=== PATIENT | female | born 1980 | race Caucasian/White ===

== ENCOUNTER 2016-11-26 11:08 | Inpatient (IN) | payer MEDICAID, OTHER ==
[2016-11-26] MEDS ORDERED: ONDANSETRON 4 MG/2 ML VIAL ONE ×3 (11:11→19:04)
--- NOTE | 2016-11-26 11:20 | EDPHY ---
H & P Source: Patient, Family, EMS Exam Limitations: No limitations - Medical/Surgical History Hx Asthma: Yes Hx Chronic Respiratory Disease: Yes Hx Diabetes: No Hx Cardiac Disease: No Hx Renal Disease: No Hx Cirrhosis: No Hx Alcoholism: No Hx HIV/AIDS: No Hx Splenectomy or Spleen Trauma: No Other PMH: Stent for kidney stones. Colecystectomy. 2x c-sections - Social History Smoking Status: Former smoker HPI/ROS: CHIEF COMPLAINT: Fall, ankle injury HISTORY OF PRESENT ILLNESS: Patient was exiting her shower when she slipped and fell injuring her right ankle. This happened within the past hour. She noted a severe onset of pain in the ankle. She noted a deformity. She was able to "put the bones back." EMS was activated. They placed the same splint she is transported here and administered fentanyl. Her pain was 10/10 prior to this. It is still moderate to severe at this time. She has no numbness or tingling of the foot. She has no pain in the ipsilateral proximal fibula. No head or neck injury. No injury elsewhere. No other associated complaints or modifying factors. REVIEW OF SYSTEMS: Ten systems reviewed and are negative unless otherwise noted in the HPI EXAMINATION General Appearance: Alert, no distress Cardiovascular: Pulses normal throughout. Symmetric DP pulses at 2+. Brisk cap refill Neurological: A&O, sensory symmetric, strength is 5/5 on the left. Strength is not tested on the right due to deformity. Skin: Warm and dry, no rash. Small puncture versus laceration of the medial aspect of the right ankle. No ecchymosis. Extremities: Moderate tenderness to the right ankle bimalleolar. There is deformity on the medial aspect of the ankle. No tenderness of the right midfoot. No tenderness of the right heel or proximal fibula. Range of motion not tested secondary to deformity and splint. Brisk cap refill in all toes. Psychiatric: Mood and affect normal DIFFERENTIAL DIAGNOSES: Including but not limited to fracture, fracture dislocation, sprain, strain MDM: 11:20 a.m. Mechanical fall exiting the shower. There is deformity of the ankle. She is neurovascular intact with good sensory and 2+ DP on the right foot. X-ray has been ordered. She still in a same splint. She was seen at time of arrival. 11:45 a.m. X-rays interpreted by me reveals bimalleolar possibly trimalleolar fracture. There is decent anatomic alignment. Will consult Orthopedics to discuss. Patient does not have an established orthopedist. 12:00 p.m. Case was discussed with orthopedist Dr. Browne. He will take the patient to the operating room today. Patient ate breakfast thus the surgery will be later this afternoon. Patient is comfortable and preferable this plan. 12:10 p.m. Re-evaluated the patient. At further examine, there is a small puncture over the medial aspect of the right ankle that may suggest compound/open fracture. due to this we will place her on antibiotics. She will also be placed in a posterior splint with stirrup as her surgery will not occur until 4:00 p.m.. She remains hemodynamically stable in no acute distress. Preoperative labs have been ordered. She remains NPO with IV fluid hand and self administration. ED Precautions: Worsening pain. Erythema, edema, cyanosis, pallor, paresthesia or anesthesia. SUPERVISION: This patient was independently evaluated without direct examination by the attending physician. Case was discussed with attending physician. Orthopedic admission (Adrian Morales) Constitutional: Initial Vital Signs Temperature (C) 98.2 F 11/26/16 11:08 Heart Rate 82 11/26/16 11:08 Respiratory Rate 16 11/26/16 11:08 Blood Pressure 133/80 H 11/26/16 11:08 O2 Sat (%) 96 11/26/16 11:08 O2 Delivery Mode Room Air Allergies/Adverse Reactions: No Known Allergies Allergy (Unverified 04/26/14 14:33) Home Medications: Medication Instructions Recorded LEVETIRACETAM [Keppra 1000 mg] 1,500 mg PO BID 11/26/16 Sertraline HCl [Zoloft 50mg (*)] 75 mg PO DAILY 11/26/16 acetaZOLAMIDE [Diamox] 250 mg PO DAILY 11/26/16 Medical Decision Making - Diagnostics Imaging: Imaging Impressions Ankle X-Ray 11/26/16 11:18 Impression: Bimalleolar right ankle fracture with lateral subluxation of the talus. Care Turn Over: The patient was evaluated and managed by the physician enrichment assistant. I have reviewed this chart and I agree with the findings and plan of care as documented , as indicated by my signature. I am the secondary supervising physician. I reviewed the patient's x-rays. (Corrine Davidson) - Data Points Medications Given: Discontinued Medications Sodium Chloride (Ns) 1,000 mls @ 0 mls/hr IV ONCE ONE PRN Reason: Wide Open Stop: 11/26/16 12:02 Last Admin: 11/26/16 12:08 Dose: 1,000 mls Cefazolin Sodium 2 gm/ Sodium (Chloride) 100 mls @ 200 mls/hr IV EDNOW ONE PRN Reason: Protocol Stop: 11/26/16 12:45 Last Admin: 11/26/16 13:09 Dose: 100 mls Cefazolin Sodium/Dextrose (Ancef 2 Gm (Premix)) 100 mls @ 200 mls/hr IV ONCE ONE Stop: 11/26/16 13:29 Last Admin: 11/26/16 13:06 Dose: Not Given Morphine Sulfate (Morphine) 6 mg IVP EDNOW ONE Stop: 11/26/16 12:20 Last Admin: 11/26/16 12:34 Dose: 6 mg Ondansetron HCl (Zofran) 4 mg IVP EDNOW ONE Stop: 11/26/16 11:23 Last Admin: 11/26/16 11:23 Dose: 4 mg Ondansetron HCl (Zofran) 4 mg IVP EDNOW ONE Stop: 11/26/16 12:20 Last Admin: 11/26/16 12:34 Dose: 4 mg Departure - Departure Disposition: [facility] Inpatient Acute Condition: Good
[2016-11-26] MEDS ORDERED: ONDANSETRON 4 MG/2 ML VIAL IVP ONE ×2 (11:22→12:19)
[2016-11-26] MEDS ORDERED: NS 1,000 ML IV ONE (12:01)
[2016-11-26] MEDS ORDERED: ceFAZolin 2 GM in NS 100 ML IV ONE (12:16)
[2016-11-26 12:34] LABS: HEMATOCRIT 43.6 % (38.0-47.0); HEMOGLOBIN 15.1 g/dL (12.6-16.3); MEAN CELL HEMOGLOBIN 32.6 pg (27.9-34.1); MEAN CELL HEMOGLOBIN CONCENTR. 34.6 g/dL (32.4-36.7); MEAN CELL VOLUME 94.2 fL (81.5-99.8); RED BLOOD CELL COUNT 4.63 10^6/uL (4.18-5.33); RED CELL DISTRIBUTION WIDTH 11.9 % (11.5-15.2)
[2016-11-26 12:44] LABS: ANION GAP 10 mEq/L (8-16); CALCIUM 8.5 mg/dL (8.5-10.4); CARBON DIOXIDE 23 mEq/l (22-31); CHLORIDE 109 mEq/L (97-110); CREATININE 0.7 mg/dL (0.6-1.0); GLOMERULAR FILTRATION RATE > 60; GLUCOSE 106 mg/dL (70-100); POTASSIUM 3.7 mEq/L (3.5-5.2); SODIUM 142 mEq/L (134-144)
[2016-11-26 12:59] LABS: APTT 21.5 SEC (23.0-38.0); INR 0.96 (0.83-1.16); PROTIME(PATIENT) 12.7 SEC (12.0-15.0)
[2016-11-26] MEDS ORDERED: ceFAZolin 2 GM/DEXTROSE 100 ML IV ONE (13:00)
[2016-11-26] MEDS ORDERED: BUPIVACAINE/EPI 0.25% 30 ML SDV ONE (13:54)
[2016-11-26] MEDS ORDERED: BACITRACIN 50,000 UNITS/10 ML SYR IRR ONE (13:55)
[2016-11-26] MEDS ORDERED: POLYMYXIN B SULFATE 500,000 UNIT/10 ML SYR IRR ONE (13:55)
[2016-11-26] MEDS ORDERED: ONDANSETRON DISINTEGRATING 4 MG TAB PO PRN (14:26)
[2016-11-26] MEDS ORDERED: ONDANSETRON 4 MG/2 ML VIAL IVP PRN (14:26)
[2016-11-26] MEDS ORDERED: MINERAL OIL 10 ML VIAL TP ONE (15:40)
[2016-11-26] MEDS ORDERED: MIDAZOLAM 2 MG/2 ML VIAL ONE (16:03)
[2016-11-26] MEDS ORDERED: CEFAZOLIN 1 GM/DEXTROSE/50 ML BAG IV ONE (16:03)
[2016-11-26] MEDS ORDERED: HYDROmorphONE/DILAUDID 2 MG/ML INJ ONE (16:18)
[2016-11-26] MEDS ORDERED: PROPOFOL 200 MG/20 ML VIAL ONE (16:18)
[2016-11-26] MEDS ORDERED: KETAMINE 100 MG/10 ML SYR IVP ONE (16:39)
[2016-11-26] MEDS ORDERED: SUCCINYLCHOLINE CHLORIDE*ANESTHESIA ONLY*200 MG/10 ML SYR IVP ONE (16:55)
[2016-11-26] MEDS ORDERED: DEXAMETHASONE 4 MG/ML VIAL ONE ×2 (16:55)
[2016-11-26] MEDS ORDERED: LIDOCAINE 2% 5 ML SDV ONE (16:55)
[2016-11-26] MEDS ORDERED: GLYCOPYRROLATE 0.2 MG/1 ML VIAL ONE (16:55)
[2016-11-26] MEDS ORDERED: MAGNESIUM HYDROXIDE 30 ML UDCUP PO PRN (18:36)
[2016-11-26] MEDS ORDERED: ACETAMINOPHEN 325 MG TAB PO PRN (18:36)
[2016-11-26] MEDS ORDERED: POLYETHYLENE GLYCOL 3350 17 GM PKT PO PRN (18:36)
[2016-11-26] MEDS ORDERED: LACTULOSE 20 GM/30 ML UDCUP PO PRN (18:36)
[2016-11-26] MEDS ORDERED: TEMAZEPAM 15 MG CAP PO PRN (18:36)
[2016-11-26] MEDS ORDERED: BISACODYL 10 MG SUPP PR PRN (18:36)
--- NOTE | 2016-11-26 18:36 | POSTOPPROG ---
Post Op Note Date of Operation: 11/26/16 Surgeon: Dolly Browne Anesthesiologist: pro Anesthesia: GET(General Endotracheal) Pre-op Diagnosis: r ankle fx Procedure: orif r ankle with fluoro Inf/Abcess present in the surg proc area at time of surgery?: No Depth: Deep Incisional (Fascial) EBL: 100-500
[2016-11-26] MEDS ORDERED: TAPENTADOL HCL 50 MG TAB PO PRN (18:40)
[2016-11-26] MEDS ORDERED: D5W 1/2 NS W/ 20 KCl/L 1,000 ML IV SCH (18:45)
--- NOTE | 2016-11-26 19:27 | GOP ---
[f rep st] OPERATIVE REPORT DATE OF OPERATION: 11/26/2016 SURGEON: Dolly Browne MD ANESTHESIA: Endotracheal intubation. PREOPERATIVE DIAGNOSIS: Right ankle fracture with comminution and ligamentous instability. POSTOPERATIVE DIAGNOSIS: Right ankle fracture with comminution and ligamentous instability. PROCEDURE PERFORMED: Open reduction/internal fixation of right ankle with fluoroscopy with syndesmo tic screw. FINDINGS: INDICATIONS: This is a 36-year-old female who slipped today after getting out of the shower. Had p ain and deformity in the ankle, which she reduced on her own apparently. Brought to the emergency r oom. She was diagnosed with a comminuted ankle fracture. As soon as she was cleared by Anesthesia, she was brought to the operating room. DESCRIPTION OF PROCEDURE: Patient brought to the operating room after the right side had been ident ified as correct side by the patient, nurse, and physician. Once in the operating room, she was octavia jerrica under general anesthesia using endotracheal intubation. Once asleep, tourniquet was placed arou nd the upper portion of the right calf. The right lower extremity was sterilely prepped and draped in the usual fashion using solution. Once prepped and draped, limb was exsanguinated and tourniquet inflated to 250 mmHg. A linear incision was made along the course of the distal fibula, approximately 20 cm long, with sharp dissection carried down through skin and subcutaneous layers, identifying the fibula below. Much of the dissection around the periosteum and been done by the fra cture itself. There was comminution with a large butterfly fragment noted posteriorly. The butterf ly fragment was reduced to the 2 larger fragments and held in place with bone reduction forceps. Tw o lag screws were then placed through the distal fragment into the butterfly, and the proximal fragm ent into the butterfly fragment, holding it in place, at which point, an 8-hole 1/3 tubular plate wa s placed against the side of the fibula. Two cortical screws were placed in order to secure the octavia te into place and bending it and molding it to the bone. Once in place, 2 proximal locking screws w ere put into place. A distal locking screw was put in place and then a cortical screw was placed in the distal portion of the plate in order to bend the plate to the cortex. Attention was then turne d medially. A linear incision was made, starting from the tip of the medial malleolus, extending ap proximately 7 cm proximally, in order to gain access to the medial malleolar site. There was abunda nt amount of periosteum stuck between the fracture fragments. Therefore, it was removed from the fr acture fragments and thoroughly irrigated to remove any hematoma and small bony bits within the frac ture site. Once completed, the fracture was able to be reduced and held in place with a K-wire, at which two 40 mm partially threaded cancellous screws were placed through the medial malleolus after appropriate drill holes had been made. Once in place, x-rays were taken and noted to still have poli e instability creating a gapping at the medial gutter with easy reducibility. Therefore, 1 of the c ortical screws associated with the 1/3 tubular plate was removed with the screw hole then filled wit h a fully threaded 3.5 mm cortical screw while the ankle was being held in a reduced position. Once completed, fluoroscopy was used to ensure proper positioning of all the screws, and there was no in stability noted across the ankle. Once completed, both wounds were thoroughly irrigated with antibi otic solution and closed in layers, to include 0 Vicryl suture for the fascial layers, 2-0 Vicryl rae ture for subcutaneous layers, and a 3-0 Prolene suture in a running subcuticular stitch for the skin . Tourniquet was deflated at 67 minutes. 10 cc of Marcaine was infused to the fibular site and 5 c c of Marcaine to the medial malleolar site. Wounds were then dressed with Steri-Strips, Xeroform, 4 x 4, and Webril. The leg was completely undraped in the operating room and tourniquet removed from the calf. An Mitul wrap was placed around the foot and ankle. She was then placed in a walker boot. She was awakened, extubated, transferred onto a stretcher, and sent to the recovery room in good c ondition. TOURNIQUET TIME: 67 minutes. /[id number]/MODL
--- NOTE | 2016-11-26 19:32 | GDS ---
[f rep st] DISCHARGE SUMMARY CURRENT COMPLAINT: Right ankle pain. HISTORY OF PRESENT ILLNESS: This is a 36-year-old female who slipped after getting out of the showe r, had pain and deformity in her ankle. Apparently was able to get the ankle into a more neutral po sition, brought to the emergency room, diagnosed with a bimalleolar fracture. MEDICAL HISTORY: Asthma. PRIOR SURGERIES: Includes stent for kidney stones, cholecystectomy and x2. PHYSICAL EXAM: HEENT: Pupils equal, round, and reactive to light. CHEST: Clear to auscultation. HEART: Regular rate and rhythm. ABDOMEN: Soft and nontender. EXTREMITIES: Right ankle has good sensation to the dorsal, lateral and plantar portions of the foot with the EHL and FHL remaining in tact. Posterior tibialis and anterior tibialis were unable to be tested. IMAGING: X-ray exam reveals a comminuted fracture of the fibula with fracture of the medial malleol us and gapping noted to the medial gutter. ASSESSMENT/PLAN: Patient is status post right ankle bimalleolar fracture. Since she had something to eat this morning, we will wait an adequate amount of time per Anesthesia until she can go to the operating room, at which point, she will undergo an open reduction, internal fixation. /[id number]/MODL
[2016-11-26] MEDS: levETIRAcetam 500 MG TAB PO SCH (19:51)
[2016-11-26] MEDS: SENNOSIDES/DOCUSATE SODIUM TAB PO SCH (19:52)
[2016-11-26] MEDS ORDERED: LEVETIRACETAM 1500 MG PO SCH (21:00)
[2016-11-26] MEDS: traMADol 50 MG TAB PO SCH (22:15)
[2016-11-26] MEDS: HYDROCODONE/APAP 5/325 TAB PO PRN (22:22)
[2016-11-27] MEDS: HYDROCODONE/APAP 5/325 TAB PO PRN ×4 (03:36→20:31)
[2016-11-27] MEDS: traMADol 50 MG TAB PO SCH ×3 (06:46→17:46)
[2016-11-27] MEDS: levETIRAcetam 500 MG TAB PO SCH ×2 (06:47→20:32)
[2016-11-27] MEDS: SERTRALINE HCL 50 MG TAB PO SCH (09:13)
[2016-11-27] MEDS: SENNOSIDES/DOCUSATE SODIUM TAB PO SCH ×2 (09:14→20:32)
[2016-11-27] MEDS: acetaZOLAMIDE 250 MG TAB PO SCH (09:14)
[2016-11-27] MEDS: RIVAROXABAN 10 MG TAB PO SCH (09:14)
[2016-11-27] MEDS: oxyCODONE IR 5 MG TAB PO PRN ×2 (13:23→17:46)
--- NOTE | 2016-11-27 15:18 | SOAPPROG ---
JOSE ALEJANDRO Progress Note Assessment/Plan: Assessment: Plan: Subjective: states she has pain when foot is in dependent position dressing C&D foot NVI DC when cleared by PT ?tomorrow Objective: Vital Signs Temp Pulse Resp BP Pulse Ox 36.4 C 61 16 118/76 92 11/27/16 12:00 11/27/16 12:00 11/27/16 12:00 11/27/16 12:00 11/27/16 12:00 Laboratory Results 11/27/16 04:52 11/26/16 11/27/16 11/28/16 05:59 05:59 05:59 Intake Total 1250 200 Output Total 1830 Balance -580 200 PT 12.7 SEC (12.0-15.0) 11/26/16 12:20 INR 0.96 (0.83-1.16) 11/26/16 12:20 - Pending Discharge Pending Discharge Within 24 Hours: No ICD10 Worksheet Patient Problems: Problems Problem Status Onset Ankle fracture, bimalleolar, closed Acute - ICD10 Problem Qualifiers (1) Ankle fracture, bimalleolar, closed Qualifiers: Encounter type: E Laterality: L Fracture healing: F
[2016-11-28] MEDS: traMADol 50 MG TAB PO SCH ×3 (02:00→11:29)
[2016-11-28] MEDS: HYDROCODONE/APAP 5/325 TAB PO PRN (04:15)
[2016-11-28 04:25] VITALS: RESP 16
[2016-11-28] MEDS: SENNOSIDES/DOCUSATE SODIUM TAB PO SCH (08:17)
[2016-11-28] MEDS: RIVAROXABAN 10 MG TAB PO SCH (08:18)
[2016-11-28] MEDS: acetaZOLAMIDE 250 MG TAB PO SCH (08:18)
[2016-11-28] MEDS: levETIRAcetam 500 MG TAB PO SCH (08:18)
[2016-11-28] MEDS: SERTRALINE HCL 50 MG TAB PO SCH (08:18)
--- NOTE | 2016-11-28 11:03 | SOAPPROG ---
SOAP Progress Note Assessment/Plan: Assessment: POD #2 s/p R ankle ORIF Plan: - D/C home today 11/28/16 11:02 Subjective: Doing well, pain controlled with [place]. Ready to go home Objective: Vital Signs Temp Pulse Resp BP Pulse Ox 36.8 C 69 16 101/59 L 97 11/28/16 07:41 11/28/16 07:41 11/28/16 07:41 11/28/16 07:41 11/28/16 07:41 Laboratory Results 11/27/16 04:52 11/27/16 11/28/16 11/29/16 05:59 05:59 05:59 Intake Total 1250 550 Output Total 1830 700 Balance -580 -150 PT 12.7 SEC (12.0-15.0) 11/26/16 12:20 INR 0.96 (0.83-1.16) 11/26/16 12:20 Dressing, CDI, calf NT, NVI - Time Spent With Patient Time Spent With Patient: 15 - Pending Discharge Pending Discharge Within 24 Hours: Yes Pending Discharge Within 48 Hours: No Pending Discharge Date: 11/29/16 Pending Discharge Time: 11:00 ICD10 Worksheet Patient Problems: Problems Problem Status Onset Ankle fracture, bimalleolar, closed Acute
--- NOTE | 2016-11-28 11:06 | PDIAF ---
- Diagnosis Code Status: Full Code - Medication Management Discharge Medications: Medications to Continue on Transfer LEVETIRACETAM [Keppra 1000 mg] 1,500 mg PO BID 11/26/16 [Last Taken 11/26/16 FIRST DOSE] Sertraline HCl [Zoloft 50mg (*)] 75 mg PO DAILY 11/26/16 [Last Taken 11/26/16] acetaZOLAMIDE [Diamox] 250 mg PO DAILY 11/26/16 [Last Taken 11/26/16] Discharge Medications: Refer to the Discharge Home Medication list for PRN reason. PICC Care - Routine: N/A - Orders Diet Recommendation: no restrictions on diet Diet Texture: Regular Texture Diet Singh: Not applicable Sutures/Crosby Site: May shower, remove in office, follow up in 2 wks Activity/Weight Bearing Restrictions: NWB x 6 weeks - Follow Up Care Current Providers and Referrals: Patient,NotPresent [Unknown] - As per Instructions
[2016-11-28 12:04] VITALS: BP 115/79; PULSE 71; TEMP 97.5; O2SAT 94
== END 2016-11-28 12:53 | disposition home or self-care (01) | DRG 494 ==
LOC: EDUNIT# → F3N 13:24 → OBSVTOIN 18:36
PROVIDERS: ADMIT Orthopaedic Surgery; ATTEND Orthopaedic Surgery
PROC: 0QSJ04Z Reposition Right Fibula with Internal Fixation Device, Open Approach (ICD-10-PCS; principal; 2016-11-26 18:26)
DX: S82.841A Displaced bimalleolar fracture of right lower leg, initial encounter for closed fracture (principal); W01.0XXA Fall on same level from slipping, tripping and stumbling without subsequent striking against object, initial encounter; Y93.E1 Activity, personal bathing and showering; Y92.012 Bathroom of single-family (private) house as the place of occurrence of the external cause
CPT/HCPCS: 96365; 97161-GP; 97165-GO; 97535-GO; C1713; C1769; J0330; J0690; J1100; J1170; J2250; J2405; J2704

== ENCOUNTER → 2016-12-03 | Emergency (ER) | payer MEDICAID ==
[2016-12-03 15:08] VITALS: O2SAT 95
--- NOTE | 2016-12-03 16:08 | EDPHY ---
H & P Time Seen by Provider: 12/03/16 15:16 HPI/ROS: CHIEF COMPLAINT: dressing check HISTORY OF PRESENT ILLNESS: 36-year-old female presents emergency department requesting a new dressing to her right ankle. Patient had an ORIF of a trimalleolar fracture [address] Browne[address] She got the outside of her dressing wet accidentally yesterday in the shower. She removed the outer layers which were wet and now has pain with putting her walking boot on without that extra padding. Patient denies fevers or chills, reports no pain other than the boot rubbing. No numbness or tingling in her foot, no other complaints. Smoking Status: Former smoker Physical Exam: GEN: Awake, alert, oriented, no acute distress RESP: nl resp effort MSK: Ecchymosis to medial and lateral ankle, range of motion not tested, 2+ pedal pulses, sensation intact to light touch SKIN: Incisions with no erythema, sutures intact, Steri-Strips intact, no drainage Constitutional: Initial Vital Signs Temperature (C) 36.6 C 12/03/16 15:07 Heart Rate 85 12/03/16 15:07 Respiratory Rate 18 12/03/16 15:07 Blood Pressure 133/84 H 12/03/16 15:07 O2 Sat (%) 95 12/03/16 15:07 O2 Delivery Mode Room Air Allergies/Adverse Reactions: No Known Allergies Allergy (Verified 12/03/16 15:08) Home Medications: Medication Instructions Recorded LEVETIRACETAM [Keppra 1000 mg] 1,500 mg PO BID 11/26/16 Sertraline HCl [Zoloft 50mg (*)] 75 mg PO DAILY 11/26/16 acetaZOLAMIDE [Diamox] 250 mg PO DAILY 11/26/16 Hydrocodone/APAP 5/325 [[place] 1 - 2 tab PO Q3HRS PRN #0 tab 11/28/16 5/325 (*)] Rivaroxaban [Xarelto 10mg (*)] 10 mg PO DAILY #0 tab 11/28/16 MDM/Departure - MDM Procedures: Dressing removal and placement- Surgical dressing removed, new sterile dressing placed to right ankle. - Depart Disposition: Home, Routine, Self-Care Clinical Impression: Encounter for surgical wound dressing change Condition: Good Instructions: Ankle Fracture (ED) Additional Instructions: Keep your dressing clean and dry, follow up with Dr. Browne as scheduled. Return to the emergency department for any new symptoms or concerns. Referrals: Dolly Browne MD [Medical Doctor] - As per Instructions
[2016-12-03 16:23] VITALS: BP 153/91; PULSE 69; RESP 14; TEMP 98.1
== END | disposition home or self-care (01) ==
DX: Z48.01 Encounter for change or removal of surgical wound dressing (principal); Z87.891 Personal history of nicotine dependence

== ENCOUNTER 2017-01-13 12:09 | Day surgery (SDC) | payer MEDICAID ==
[2017-01-13] MEDS ORDERED: fentaNYL 100 MCG/2 ML INJ ONE ×3 (12:31→14:54)
[2017-01-13] MEDS ORDERED: PROPOFOL 200 MG/20 ML VIAL ONE ×2 (12:32→14:20)
[2017-01-13] MEDS ORDERED: LIDOCAINE 1% 2 ML INJ ONE (13:02)
[2017-01-13] MEDS ORDERED: BACITRACIN 50,000 UNITS/10 ML SYR IRR ONE (13:13)
[2017-01-13] MEDS ORDERED: BUPIVACAINE 0.5% 30 ML SDV ONE (13:13)
[2017-01-13] MEDS ORDERED: POLYMYXIN B SULFATE 500,000 UNIT/10 ML SYR IRR ONE (13:13)
[2017-01-13] MEDS ORDERED: LR 1,000 ML IV ONE (13:18)
[2017-01-13] MEDS ORDERED: LIDOCAINE 1% 5 ML SDV ID PRN (13:18)
[2017-01-13] MEDS ORDERED: MIDAZOLAM 2 MG/2 ML VIAL ONE (13:29)
[2017-01-13 13:36] LABS: ANION GAP 10 mEq/L (8-16); CALCIUM 9.3 mg/dL (8.5-10.4); CARBON DIOXIDE 23 mEq/l (22-31); CHLORIDE 109 mEq/L (97-110); CREATININE 0.7 mg/dL (0.6-1.0); GLOMERULAR FILTRATION RATE > 60; GLUCOSE 88 mg/dL (70-100); POTASSIUM 4.1 mEq/L (3.5-5.2); SODIUM 142 mEq/L (134-144)
[2017-01-13] MEDS ORDERED: ceFAZolin 3 GM in D5W 100 ML IV ONE (14:00)
[2017-01-13] MEDS ORDERED: ACETAMINOPHEN 500 MG TAB PO ONE (14:00)
[2017-01-13] MEDS ORDERED: KETOROLAC 30 MG/1 ML SDV ONE (14:53)
[2017-01-13] MEDS ORDERED: HYDROmorphONE/DILAUDID 1 MG/ML SYR IVP PRN (15:20)
[2017-01-13] MEDS ORDERED: HYDROCODONE/APAP 5/325 TAB PO PRN (15:22)
--- NOTE | 2017-01-13 15:32 | GOP ---
[f rep st] OPERATIVE REPORT DATE OF OPERATION: SURGEON: Dolly Browne MD ANESTHESIA: By LMA. PREOPERATIVE DIAGNOSIS: Status post right ankle open reduction/internal fixation. POSTOPERATIVE DIAGNOSIS: Status post right ankle open reduction/internal fixation. PROCEDURE PERFORMED: Right ankle removal of hardware with fluoroscopy. FINDINGS: INDICATIONS: This is a 36-year-old female who had previously undergone a right ankle ORIF with a sy ndesmotic screw, typically waiting 3 months before removing the syndesmotic screw before it breaks o n its own. She has waited an ample amount of time, the fracture appears to be well healed, and gianluca zarate has elected to have the surgery in order to resolve the problem. DESCRIPTION OF PROCEDURE: Patient was brought to the operating room after the right side had been i dentified as correct side by the patient, nurse, and physician. Once in the operating room, she was placed under anesthesia using an LMA. Once asleep, a tourniquet was placed around the upper portio n of the right calf, and the right lower extremity was sterilely prepped and draped in usual fashion using GSI solution. Once prepped and draped, limb was exsanguinated and tourniquet inflated to 250 mmHg. Using fluoroscopy, the area over the lateral incision was found where the head of the screw would be most prominent. This was marked. Sharp dissection was carried down through the skin, usin g the prior scar, onto the subcutaneous layers, identifying the plate below. The screw head was fou nd and was removed using a screwdriver. A small house curette was used to irritate the screw hole l eft in the bone in order to get it to heal. Fluoroscopy was used to ensure removal of the correct s crew and that it had been removed in its entirety. The wound was then irrigated with an antibiotic solution and was closed in layers with 2-0 Vicryl suture for the subcutaneous layers and in a 3-0 Pr olene suture in a running subcuticular stitch for the skin. Marcaine 5 cc was infused around the ac tual wound itself. The wound was dressed with Steri-Strips, Xeroform, 4 x 4, and Tegaderm. Tourniq uet was deflated at 12 minutes. Leg was completely undraped in the operating room. Tourniquet was r emoved from the calf. She was then awakened, extubated, transferred onto a stretcher, and sent to [facility] recovery room in good condition. TOURNIQUET TIME: 12 minutes. /[id number]/MODL
[2017-01-13] MEDS ORDERED: HYDROCODONE/APAP 5/325 TAB ONE (15:52)
[2017-01-13 16:15] VITALS: BP 124/89; O2SAT 89
[2017-01-14] MEDS ORDERED: ASPIRIN EC 81 MG TAB PO SCH (09:00)
== END 2017-01-13 17:05 | disposition home or self-care (01) ==
LOC: FSGY 12:09
PROVIDERS: ATTEND Orthopaedic Surgery
PROC: 0QP Lower Bones, Removal (ICD-10-PCS; principal; 2017-01-13 13:30)
DX: Z47.2 Encounter for removal of internal fixation device (principal); G40.909 Epilepsy, unspecified, not intractable, without status epilepticus; Z87.891 Personal history of nicotine dependence
CPT/HCPCS: J0690; J1885; J2250; J2704; J3010

== ENCOUNTER 2017-05-09 08:11 | Emergency (ER) | payer MEDICAID ==
[2017-05-09] MEDS ORDERED: IBUPROFEN 600 MG TAB PO ONE (08:21)
--- NOTE | 2017-05-09 08:38 | EDPHY ---
H & P Stated Complaint: upper resp symptoms /swollen gland/body aches HPI/ROS: CHIEF COMPLAINT: Sore throat HISTORY OF PRESENT ILLNESS: The patient is a 37 y/o female with a history of a seizure disorder arriving with her mother complaining of a sore throat and left- sided jaw pain onset 24 hours ago. She has been able to drink fluids, though swallowing is painful. She complains of associated pain under her left breast and on her left lateral ribs. She had chills last night and thinks she had a fever. She had one episode of vomiting yesterday around 14:00 and had diarrhea throughout the night. She has not taken anything for her symptoms. She denies dyspnea, earache. REVIEW OF SYSTEMS: A ten point review of systems was performed and is negative with the exception of the items mentioned in the HPI. Past medical history: Seizure disorder - Keppra; depression - sertraline Past surgical history: Ankle fracture repair; tubal ligation; 2 c-sections Family history: Noncontributory Social history: Mother at bedside. Employed. Former smoker. No PCP. General Appearance: Alert. Obese. Vital signs reviewed. Blood pressure 149/89 at triage. Eyes: Pupils equal and round, no conjunctival injection, no discharge. Anicteric. ENT, Mouth: Mucous membranes are moist. Tonsillar erythema and exudate. Normal TMs. Neck: Anterior cervical lymphadenopathy, supple. Respiratory: Lungs are clear to auscultation; no wheezes, rales, or rhonchi. Cardiovascular: Regular rate and rhythm; no murmur, rub, or gallop. Gastrointestinal: Abdomen is soft and nontender, no masses or organomegaly, bowel sounds normal. Skin: Warm and dry, no rashes on exposed skin, normal color. Back: Nontender to palpation over the thoracolumbar spine. No CVAT. Extremities: No lower extremity edema, no calf tenderness or swelling. Neurological: Alert and oriented. Moving all four extremities easily and equally. Psychiatric: Normal affect. - Personal History LMP (Females 10-55): 22-28 Days Ago Current Tetanus/Diphtheria Vaccine: Yes - Medical/Surgical History Hx Asthma: No Hx Chronic Respiratory Disease: No Hx Diabetes: No Hx Cardiac Disease: No Hx Renal Disease: No Hx Cirrhosis: No Hx Alcoholism: No Hx HIV/AIDS: No Hx Splenectomy or Spleen Trauma: No Other PMH: Stent for kidney stones. Colecystectomy. 2x c-sections - Social History Smoking Status: Former smoker Constitutional: Initial Vital Signs Temperature (C) 37.9 C 05/09/17 08:15 Heart Rate 94 05/09/17 08:15 Respiratory Rate 17 05/09/17 08:15 Blood Pressure 149/89 H 05/09/17 08:15 O2 Sat (%) 95 05/09/17 08:15 O2 Delivery Mode Room Air Allergies/Adverse Reactions: No Known Allergies Allergy (Verified 05/09/17 08:14) Home Medications: Medication Instructions Recorded LEVETIRACETAM [Keppra 1000 mg] BID 11/26/16 Sertraline HCl [Zoloft 50mg (*)] 11/26/16 Penicillin V Potassium [Penicillin 500 mg PO BID #14 tab 05/09/17 VK] Medical Decision Making ED Course/Re-evaluation: Strep swab is positive. Patient will be discharged on penicillin. No respiratory compromise. She is managing her secretions easily. Influenza test is pending. I have informed the patient that I will contact her if this test is positive. Differential Diagnosis: I considered a differential diagnosis that includes viral syndrome, influenza, pharyngitis either viral or bacterial, sinusitis, retropharyngeal abscess, peritonsillar abscess. - Data Points Laboratory Results: 05/09/17 05/09/17 08:55 08:34 Influenza A & B (PCR) Pending Group A Strep Screen POSITIVE H (NEGATIVE) Medications Given: Discontinued Medications Ibuprofen (Motrin) 600 mg PO EDNOW ONE Stop: 05/09/17 08:22 Last Admin: 05/09/17 08:26 Dose: 600 mg Departure - Departure Disposition: Home, Routine, Self-Care Clinical Impression: Strep throat Condition: Good Instructions: Penicillin V (By mouth), Strep Throat (ED) Additional Instructions: 1. Take penicillin as prescribed. Be sure to complete the entire prescription. 2. Use Tylenol and ibuprofen as needed for pain and fever. 3. Follow up with a primary care provider to establish care. You've been referred to Dr. Hopson. 4. Return to the ED if you are unable to swallow, have difficulty breathing, or develop other worsening of condition. Adult Pain & Fever Control: We recommend Acetaminophen (Tylenol) and Ibuprofen (Motrin,Advil) for pain and fever control. When fever is high or pain severe, both drugs can be used at the same time, but at different intervals. Please note the time differences. Your dose is: Acetaminophen 650mg every 4 to 6 hours Ibuprofen 600mg every6-8 hours with food Note: do not take Acetaminophen with Hydrocodone (Vicodin, Lortab) or Oxycodone (Percocet). These medications also contain Acetaminophen. No more than 3000mg of Acetaminophen should be taken in 24 hours (for an adult). Referrals: NONE *PRIMARY CARE P,. [Primary Care Provider] - As per Instructions Brianna [place] [place] - As per Instructions Stand Alone Forms: Work Excuse Prescriptions: Penicillin V Potassium [Penicillin VK] 500 mg PO BID #14 tab Report Scribed for: Corrine Davidson Report Scribed by: Lalita Perez Date of Report: 05/09/17 Time of Report: 08:51 Physician Review and Approval Statement: 05/09/17 08:38 Portions of this note were transcribed by the medical research assistant. I, Dr. Corrine Davidson, personally performed the history, physical exam, and medical decision- making; and confirmed the accuracy of the information in the transcribed note.
[2017-05-09 09:21] VITALS: BP 134/87; PULSE 98; RESP 18; TEMP 99.9; O2SAT 94
== END 2017-05-09 09:23 | disposition home or self-care (01) ==
DX: J02.0 Streptococcal pharyngitis (principal); Z87.891 Personal history of nicotine dependence

== ENCOUNTER 2017-12-09 15:39 | Emergency (ER) | payer MEDICAID ==
[2017-12-09 16:09] VITALS: BP 139/97
--- NOTE | 2017-12-09 16:41 | EDPHY ---
H & P Time Seen by Provider: 12/09/17 16:26 HPI/ROS: CHIEF COMPLAINT: Sore throat, cough, sinus congestion HISTORY OF PRESENT ILLNESS: The patient is a 37-year-old female who presents emergency department multiple complaints. She states that she developed sore throat last Monday. She then developed the sinus congestion and runny nose. She has developed a nonproductive cough. No shortness of breath. No abdominal pain. No nausea vomiting. No fevers or chills. REVIEW OF SYSTEMS: My complete review of systems is negative except as mentioned in the HPI. Past Medical/Surgical History: Includes seizure disorder, kidney stone Past surgical history: Cholecystectomy, x2 Smoking Status: Former smoker Physical Exam: Vitals noted. GENERAL: Well-appearing, in no acute distress, alert. HEENT: Eyes normal to inspection, normal pharynx, no signs of dehydration. NECK: [No thyromegaly, no lymphadenopathy, supple. RESPIRATORY: Clear to auscultation bilaterally, no rales, rhonchi or wheezing. CVS: Regular rate and rhythm, no rubs, murmurs, or gallops. ABDOMEN: Soft, nontender, nondistended, no organomegaly. BACK: Normal to inspection, no CVA tenderness. SKIN: Normal color, no rash, warm, dry. No pallor. EXTREMITIES: No pedal edema, no calf tenderness, no Homans sign or cords, no joint swelling. NEURO/PSYCH: Alert and oriented x3, normal mood and affect, normal motor sensory exam. No obvious cranial nerve deficit. Constitutional: Initial Vital Signs Temperature (C) 36.9 C 12/09/17 16:06 Heart Rate 73 12/09/17 16:06 Respiratory Rate 17 12/09/17 16:06 Blood Pressure 139/97 H 12/09/17 16:06 O2 Sat (%) 95 12/09/17 16:06 O2 Delivery Mode Room Air Allergies/Adverse Reactions: No Known Allergies Allergy (Verified 05/09/17 08:14) Home Medications: Medication Instructions Recorded LEVETIRACETAM [Keppra 1000 mg] BID 11/26/16 Sertraline HCl [Zoloft 50mg (*)] 11/26/16 Penicillin V Potassium [Penicillin 500 mg PO BID #14 tab 05/09/17 VK] Azithromycin 250 mg PO DAILY #4 tablet 12/09/17 Medical Decision Making ED Course/Re-evaluation: In the emergency department I discussed possible etiologies with the patient. I answered all her questions. Because the patient has an ongoing cough and sore throat she was treated with azithromycin. I discussed this plan with the patient. Patient was given warnings prior to leaving. She will return with worsening symptoms. Differential Diagnosis: My differential includes but is not limited to pharyngitis, strep pharyngitis, peritonsillar abscess, retropharyngeal abscess, bronchitis, pneumonia Departure - Departure Disposition: Home, Routine, Self-Care Clinical Impression: Bronchitis Pharyngitis Qualifiers: Pharyngitis/tonsillitis etiology: unspecified etiology Qualified Code(s): J02.9 - Acute pharyngitis, unspecified Condition: Good Instructions: Acute Bronchitis (ED), Pharyngitis (ED) Additional Instructions: Return with increasing shortness of breath, sore throat, fever or any other concerns. Take your entire course of antibiotics. Referrals: Antonio Anguiano MD [Medical Doctor] - 5-7 days, call for appt. Prescriptions: Azithromycin 250 mg PO DAILY #4 tablet
[2017-12-09] MEDS ORDERED: AZITHROMYCIN 250 MG TAB PO ONE (16:44)
== END 2017-12-09 16:50 | disposition home or self-care (01) ==
DX: J20.9 Acute bronchitis, unspecified (principal); Z87.891 Personal history of nicotine dependence

== ENCOUNTER 2018-02-21 16:18 | Emergency (ER) | payer MEDICAID ==
[2018-02-21] MEDS ORDERED: NS 1,000 ML IV ONE (16:57)
[2018-02-21] MEDS ORDERED: IOPAMIDOL (ISOVUE-300) 100 ML BTL ONE (17:19)
--- NOTE | 2018-02-21 17:19 | EDPHY ---
H & P Time Seen by Provider: 02/21/18 16:50 HPI/ROS: HPI Abdominal pain. 37-year-old female by private vehicle. This patient reports that on Monday she developed bilateral adnexal pain. She describes this as dull aching in her adnexal area. She reports that over the next 2 days and worsening today the pain has moved to her periumbilical area. She describes the pain as a dull ache. She has not had any associated nausea or vomiting. Denies any urinary complaints. No vaginal bleeding. No vaginal discharge. Last menstrual period was 1 month ago. Last meal was earlier this morning at approximately 8:00 a.m.. Prior surgical history includes cholecystectomy. ROS: Constitutional: No fever, no chills. No weakness. Eyes: No discharge. No changes in vision. ENT: No sore throat. No nasal congestion or rhinorrhea. Respiratory: No cough. No shortness of breath. Cardiac: No chest pain, no palpitations. Gastrointestinal: As above, no vomiting, no diarrhea. Genitourinary: No hematuria. No dysuria or increased frequency with urination. Musculoskeletal: No back pain. No neck pain. No myalgias or arthralgias. Skin: No rashes. Neurological: No headache. No focal weakness or altered sensation. Past medical history: Kidney stones with ureteral stent, cholecystectomy. Tubal ligation. Social history: Nonsmoker. No alcohol. Here by herself. Physical Exam: General Appearance: Alert, pleasant, no distress. Obese habitus. This patient is responding to questions appropriately and in full sentences. This patient appears well-hydrated and well-nourished. Eyes: Pupils equal and round no pallor or injection. No lid edema, erythema or injection. Respiratory: There are no retractions, lungs are clear to auscultation with good air movement bilaterally. Cardiovascular: Regular rate and rhythm. No murmur. Gastrointestinal: Obese habitus. Abdomen is soft vague periumbilical tenderness on palpation, no masses, bowel sounds normal. No focal tenderness at McBurney's point. No Edwards sign. Neurological: Motor sensory function is grossly intact. Cranial nerves are normal. Gait is normal. Skin: Warm and dry, no rashes. Musculoskeletal: Neck is supple and nontender. Extremities are symmetrical. All joints range without pain or impingement. Psychiatric: No agitation. No depression. Database: EKG: Imaging: CT scan of abdomen and pelvis with IV contrast: Significant for a 7 mm x 6 mm x 9 mm left-sided distal ureteral stone with moderate hydronephrosis. She also has a left-sided ovarian cyst. Results discussed with staff radiologist Dr. Rg Lucio. Please see report for further details. Procedures: Emergency department course: Vital signs reviewed. She is moderately hypertensive. Vital signs otherwise normal. She is afebrile. IV was placed. She was started on IV normal saline with 500 cc to 1 L to be given over the next hour. She currently is not nauseous. She has no contraindications to NSAIDs. After verification of a normal creatinine she will be given IV Toradol for pain medication as needed. She consents to CT imaging of her abdomen and pelvis to evaluate for possible appendicitis. 7:00 p.m., patient re-evaluated. She appears fairly comfortable at this time. She will receive IV Toradol. She has a normal creatinine. She will also receive oral Flomax. At this time she does not want to be admitted. Urology was paged to arrange for follow-up tomorrow. 7:15 p.m., spoke with on-call urologist PA Dr. Laure Medina. Case discussed in detail with her. She will see this patient in her office tomorrow for further management. Plan was discussed with the patient. She is in agreement. She feels comfortable being discharged. I will prescribe her Vicodin and Zofran. She understands for follow-up. Return to emergency department precautions reviewed. All of her questions were answered. She was discharged in good condition. Differential Diagnosis: The differential diagnosis on this patient includes but is not limited to constipation, colitis. Appendicitis, ovarian torsion, bowel obstruction, volvulus, diverticulitis, ectopic unlikely. This represents a partial list of diagnoses considered. These considerations are based on history , physical exam, past history, reassessment and diagnostic testing. Smoking Status: Former smoker Constitutional: Initial Vital Signs Temperature (C) 37.0 C 02/21/18 16:21 Heart Rate 86 02/21/18 16:21 Respiratory Rate 16 02/21/18 16:21 Blood Pressure 145/85 H 02/21/18 16:21 O2 Sat (%) 97 02/21/18 16:21 O2 Delivery Mode Room Air Allergies/Adverse Reactions: No Known Allergies Allergy (Verified 05/09/17 08:14) Home Medications: Medication Instructions Recorded Hydrocodone/APAP 5/325 [[place] 1 - 2 tab PO Q4-6PRN PRN #10 tab 02/21/18 5/325 (*)] Keppra 02/21/18 Ondansetron Odt [Zofran Odt 4 mg 4 mg PO Q4PRN PRN #10 tab 02/21/18 (*)] Sertraline HCl 02/21/18 Tamsulosin HCl [Flomax 0.4 MG (*)] 0.4 mg PO DAILY #4 cap 02/21/18 Medical Decision Making - Diagnostics Imaging Results: Imaging Impressions Abdomen CT 02/21/18 17:14 Impression: 1. Left ureteral obstructing stone. 2. Nonobstructive bilateral nephrolithiasis. 3. Likely incidental, left ovarian cyst. Results called and discussed with Monie Mendez MD, at 02/21/2018 18:30 General information for patients regarding this examination can be found at [email or web address]. If you have questions or comments about this report, please contact me at (hospital) or [phone] (cell). - Data Points Laboratory Results: Laboratory Results 02/21/18 17:12 02/21/18 17:12 02/21/18 02/21/18 02/21/18 18:29 17:12 17:12 WBC RBC Hgb Hct MCV MCH MCHC RDW Plt Count MPV Neut % (Auto) Lymph % (Auto) Pima % (Auto) Eos % (Auto) Baso % (Auto) Nucleat RBC Rel Count Absolute Neuts (auto) Absolute Lymphs (auto) Absolute Monos (auto) Absolute Eos (auto) Absolute Basos (auto) Absolute Nucleated RBC Immature Gran % Immature Gran # Sodium 135 mEq/L mEq/L (135-145) Potassium 3.7 mEq/L mEq/L (3.3-5.0) Chloride 105 mEq/L mEq/L (97-110) Carbon Dioxide 24 mEq/l mEq/l (22-31) Anion Gap 6 mEq/L L mEq/L (8-16) BUN 12 mg/dL mg/dL (7-23) Creatinine 0.8 mg/dL mg/dL (0.6-1.0) Estimated GFR > 60 Glucose 91 mg/dL mg/dL (70-100) Calcium 9.4 mg/dL mg/dL (8.5-10.4) Total Bilirubin 0.9 mg/dL mg/dL (0.1-1.4) Conjugated Bilirubin 0.4 mg/dL mg/dL (0.0-0.5) Unconjugated Bilirubin 0.5 mg/dL mg/dL (0.0-1.1) AST 30 IU/L IU/L (14-46) ALT 48 IU/L IU/L (9-52) Alkaline Phosphatase 61 IU/L IU/L (38-126) Total Protein 7.0 g/dL g/dL (6.3-8.2) Albumin 4.1 g/dL g/dL (3.5-5.0) Lipase 82 IU/L IU/L (23-300) Beta HCG, Qual NEGATIVE Urine Color YELLOW Urine Appearance MODERATELY TURBID Urine pH 7.0 (5.0-7.5) Ur Specific Cash 1.017 (1.002-1.030) Urine Protein NEGATIVE (NEGATIVE) Urine Ketones NEGATIVE (NEGATIVE) Urine Blood NEGATIVE (NEGATIVE) Urine Nitrate NEGATIVE (NEGATIVE) Urine Bilirubin NEGATIVE (NEGATIVE) Urine Urobilinogen NEGATIVE EU EU (0.2-1.0) Ur Leukocyte Esterase NEGATIVE (NEGATIVE) Urine RBC NONE SEEN /hpf /hpf (0-3) Urine WBC 1-3 /hpf /hpf (0-3) Ur Epithelial Cells TRACE /lpf /lpf (NONE-1+) Amorphous Sediment PRESENT /hpf /hpf (NONE-1+) Urine Mucus TRACE /lpf /lpf (NONE-1+) Urine Glucose NEGATIVE (NEGATIVE) 02/21/18 17:12 WBC 12.08 10^3/uL H 10^3/uL (3.80-9.50) RBC 4.40 10^6/uL 10^6/uL (4.18-5.33) Hgb 14.4 g/dL g/dL (12.6-16.3) Hct 41.0 % % (38.0-47.0) MCV 93.2 fL fL (81.5-99.8) MCH 32.7 pg pg (27.9-34.1) MCHC 35.1 g/dL g/dL (32.4-36.7) RDW 11.8 % % (11.5-15.2) Plt Count 203 10^3/uL 10^3/uL (150-400) MPV 10.7 fL fL (8.7-11.7) Neut % (Auto) 70.7 % % (39.3-74.2) Lymph % (Auto) 17.1 % % (15.0-45.0) Pima % (Auto) 7.3 % % (4.5-13.0) Eos % (Auto) 4.1 % % (0.6-7.6) Baso % (Auto) 0.4 % % (0.3-1.7) Nucleat RBC Rel Count 0.0 % % (0.0-0.2) Absolute Neuts (auto) 8.54 10^3/uL H 10^3/uL (1.70-6.50) Absolute Lymphs (auto) 2.06 10^3/uL 10^3/uL (1.00-3.00) Absolute Monos (auto) 0.88 10^3/uL H 10^3/uL (0.30-0.80) Absolute Eos (auto) 0.50 10^3/uL H 10^3/uL (0.03-0.40) Absolute Basos (auto) 0.05 10^3/uL 10^3/uL (0.02-0.10) Absolute Nucleated RBC 0.00 10^3/uL 10^3/uL (0-0.01) Immature Gran % 0.4 % % (0.0-1.1) Immature Gran # 0.05 10^3/uL 10^3/uL (0.00-0.10) Sodium Potassium Chloride Carbon Dioxide Anion Gap BUN Creatinine Estimated GFR Glucose Calcium Total Bilirubin Conjugated Bilirubin Unconjugated Bilirubin AST ALT Alkaline Phosphatase Total Protein Albumin Lipase Beta HCG, Qual Urine Color Urine Appearance Urine pH Ur Specific Cash Urine Protein Urine Ketones Urine Blood Urine Nitrate Urine Bilirubin Urine Urobilinogen Ur Leukocyte Esterase Urine RBC Urine WBC Ur Epithelial Cells Amorphous Sediment Urine Mucus Urine Glucose Medications Given: Discontinued Medications Sodium Chloride (Ns) 1,000 mls @ 0 mls/hr IV EDNOW ONE; Wide Open PRN Reason: Protocol Stop: 02/21/18 16:58 Last Admin: 02/21/18 17:09 Dose: 1,000 mls Ketorolac Tromethamine (Toradol) 30 mg IVP EDNOW ONE Stop: 02/21/18 19:01 Last Admin: 02/21/18 19:15 Dose: 30 mg Tamsulosin HCl (Flomax) 0.4 mg PO EDNOW ONE Stop: 02/21/18 19:07 Last Admin: 02/21/18 19:15 Dose: 0.4 mg Departure - Departure Disposition: Home, Routine, Self-Care Clinical Impression: Abdominal pain, Kidney stone on left side Condition: Good Instructions: Kidney Stones (ED) Additional Instructions: Read and follow provided instructions. Follow-up with Urology, tomorrow as discussed for further management. Call their office 1st thing in the morning at 8:30 a.m. To 9:00 a.m.. They will see you tomorrow. Narcotic pain medication: 1-2 p. O. Every 4-6 hours as needed for pain. Do not take Tylenol with this medication. Do not drive on this medication. Ibuprofen dosin mg every 6 hours with meals for the next 3 days only. You can start taking this medication tomorrow morning. Take only as needed for pain. I have also prescribed you and medication for nausea. Return to the emergency department for worsening or uncontrolled pain, vomiting , fever or other serious concerns. Referrals: Laure Medina, PAC [Physician Biometrics Technician] - As per Instructions Prescriptions: Hydrocodone/APAP 5/325 [[place] 5/325 (*)] 1 - 2 tab PO Q4-6PRN PRN #10 tab PRN Reason: Pain, Moderate Ondansetron Odt [Zofran Odt 4 mg (*)] 4 mg PO Q4PRN PRN #10 tab PRN Reason: For Nausea & Vomiting Tamsulosin HCl [Flomax 0.4 MG (*)] 0.4 mg PO DAILY #4 cap
[2018-02-21 17:22] LABS: PLATELET COUNT 203 10^3/uL (150-400)
[2018-02-21] MEDS ORDERED: KETOROLAC 30 MG/1 ML SDV IVP ONE (19:00)
[2018-02-21] MEDS ORDERED: TAMSULOSIN HCL 0.4 MG CAP PO ONE (19:06)
[2018-02-21 19:19] VITALS: BP 128/81
[2018-02-21] MEDS ORDERED: ONDANSETRON 4MG PREPACK#2 BTL TAKEHOME ONE (19:29)
[2018-02-21] MEDS ORDERED: HYDROCOD/APAP 5/325 PREPACK#6 BTL TAKEHOME ONE (19:29)
== END 2018-02-21 19:52 | disposition home or self-care (01) ==
DX: N20.0 Calculus of kidney (principal); E86.9 Volume depletion, unspecified; Z87.891 Personal history of nicotine dependence; Z90.49 Acquired absence of other specified parts of digestive tract; Z98.51 Tubal ligation status
CPT/HCPCS: 96374; J1885; Q9967

== ENCOUNTER 2018-02-23 05:54 | Day surgery (SDC) | payer MEDICAID, OTHER ==
--- NOTE | 2018-02-22 18:30 | GHP ---
[f rep st] PREOP HISTORY AND PHYSICAL ADMISSION DIAGNOSIS: Left ureteral calculus. HISTORY: This is a 37-year-old lady who presented from the emergency room because of left abdominal and groin pain which began 3 days ago and radiates at the mid abdomen, stayed about the same in [facility]. She has had no fevers, chills, hematuria, and she was treated with a left ureteral stone by Dr Shahbaz Youssef in 2003 possibly, but I do question that since I do not believe she was in the [place] area at that point. She had a CAT scan that showed a 9 mm proximal ureteral stone with mild hydronephros is, small right renal stone, and a left lower pole stone. PAST MEDICAL HISTORY: Ureteral calculi and asthma. PAST SURGICAL HISTORY: cholecystitis with cholecystectomy and tubal ligation and kidney st ones. MEDICATIONS: Include Flomax, Keppra, Lexapro, Vicodin. ALLERGIES: No known drug allergies. FAMILY HISTORY: Positive for diabetes, hypertension, and heart disease. SOCIAL HISTORY: Nonsmoker, rare alcohol consumption. REVIEW OF SYSTEMS: Negative cardiac, respiratory, GI, and endocrine. PHYSICAL EXAM: VITAL SIGNS: Blood pressure is 173/101 when she is in the office due to pain. Heart rate 81, respirations 16. Vital signs stable. CHEST: Clear. HEART: Regular rate and rhythm. AB DOMEN: Normal. No organomegaly, rebound or guarding. She does have tenderness to palpation. EXTRE MITIES: Lower extremities are normal. LABORATORY: She had a urinalysis in the office that showed small bilirubin, negative blood, pH of 7, nitrite negative, white blood cell +1, trace. ASSESSMENT AND PLAN: At the present time, she is admitted as an outpatient for left ureteroscopic re moval of calculus. /[id number]/MODL
[2018-02-23] MEDS ORDERED: LR 1,000 ML IV ONE (06:06)
[2018-02-23] MEDS ORDERED: LIDOCAINE 2% JELLY 20 ML (UROJECT) ONE (06:28)
[2018-02-23] MEDS ORDERED: IOPAMIDOL (ISOVUE-M 300) 15 ML VIAL ONE (06:29)
[2018-02-23] MEDS ORDERED: MIDAZOLAM 2 MG/2 ML VIAL IVP ONE (07:02)
--- NOTE | 2018-02-23 07:02 | PDANEPAE ---
ANE History of Present Illness L ureteroscopy with stone manipulation ANE Past Medical History - Cardiovascular History Hx Hypertension: No Hx Arrhythmias: No Hx Chest Pain: No Hx Coronary Artery / Peripheral Vascular Disease: No Hx CHF / Valvular Disease: No Hx Palpitations: No - Pulmonary History Hx COPD: No Hx Asthma/Reactive Airway Disease: Yes Hx Recent Upper Respiratory Infection: No Hx Oxygen in Use at Home: No Hx Sleep Apnea: No - Neurologic History Hx Cerebrovascular Accident: No Hx Seizures: Yes Hx Dementia: No Neurologic History Comment: epilepsy- last seizure 5 yrs ago - Endocrine History Hx Diabetes: No Hypothyroid: Yes Endocrine History Comment: hypothyroidism- hasn't been taking levothyroxine d/t not going to dr to refill rx - Renal History Hx Renal Disorders: No Renal History Comment: hx of kidney stones - Liver History Hx Hepatic Disorders: No - Neurological & Psychiatric Hx Hx Neurological and Psychiatric Disorders: Yes Neurological / Psychiatric History Comment: depression - Cancer History Hx Cancer: No - Congenital Disorder History Hx Congenital Disorders: No - GI History Hx Gastrointestinal Disorders: No - Other Health History Other Health History: wears glasses - Chronic Pain History Chronic Pain: No - Surgical History Prior Surgeries: 11/26/16 right ankle orif with Hollie. x2. tubal ligation. stent placed for kidney stone with lithotripsy. wound repair on leg from door ripping open leg ANE Review of Systems Review of systems is: negative Review of Systems: - Exercise capacity Exercise capacity: >=4 METS ANE Patient History - Allergies Allergies/Adverse Reactions: No Known Allergies Allergy (Verified 05/09/17 08:14) - Home Medications Home medications: home medication list seen and reviewed Home Medications: Keppra 02/21/18 [Last Taken 02/23/18 06:00] Sertraline HCl 02/21/18 [Last Taken 3 Months Ago ~11/24/17] Chlorothiazide [Diuril] 02/23/18 [Last Taken 02/23/18] Levothyroxine 02/23/18 [Last Taken 02/23/18 06:00] - NPO status NPO Status: no food or drink >8 hours NPO Since - Liquids (Date): 02/22/18 NPO Since - Liquids (Time): 19:00 NPO Since - Solids (Date): 02/22/18 NPO Since - Solids (Time): 17:00 - Anes Hx Anes Hx: no prior problems - Smoking Hx Smoking Status: Former smoker - Family Anes Hx Family Anes Hx: none Family Hx Anesthesia Complications: none ANE Labs/Vital Signs - Vital Signs Vital Signs: reviewed preoperatively; see RN documention for details Blood Pressure: 123/97 Heart Rate: 73 Respiratory Rate: 14 O2 Sat (%): 96 Height: 154.94 cm Weight: 125.645 kg ANE Physical Exam - Airway Neck exam: FROM Mallampati Score: Class 1 Mouth exam: normal dental/mouth exam - Pulmonary Pulmonary: no respiratory distress - Cardiovascular Cardiovascular: regular rate and rhythym - ASA Status ASA Status: III ANE Anesthesia Plan Anesthesia Plan: general endotracheal anesthesia
[2018-02-23] MEDS ORDERED: ceFAZolin 2 GM/DEXTROSE 100 ML IV ONE (07:04)
--- NOTE | 2018-02-23 07:05 | PDHPUP ---
History & Physical Update H&P update statement: This history and physical update is based on an assessment of the patient which was completed after admission or registration (within 24 hours), but prior to the surgery/procedure. H&P update: H&P reviewed & patient examined, no change in patient's condition since H&P completed
[2018-02-23] MEDS ORDERED: ONDANSETRON 4 MG/2 ML VIAL ONE ×2 (07:16→09:31)
[2018-02-23] MEDS ORDERED: fentaNYL 100 MCG/2 ML INJ ONE ×2 (07:16→09:08)
[2018-02-23] MEDS ORDERED: LIDOCAINE 2% 100 MG/5 ML SYR ONE (07:16)
[2018-02-23] MEDS ORDERED: DEXAMETHASONE 4 MG/ML VIAL ONE (07:16)
[2018-02-23] MEDS ORDERED: PROPOFOL 200 MG/20 ML VIAL ONE (07:17)
[2018-02-23] MEDS ORDERED: ROCURONIUM 50 MG/5 ML VIAL ONE (07:17)
[2018-02-23] MEDS ORDERED: ceFAZolin 1 GM VIAL ONE ×3 (07:22)
[2018-02-23] MEDS ORDERED: ceFAZolin 3 GM in D5W 100 ML IV ONE (07:30)
[2018-02-23] MEDS ORDERED: ONDANSETRON 4 MG/2 ML VIAL IVP PRN (08:05)
[2018-02-23] MEDS ORDERED: ALBUTEROL 3 ML DEYVIAL IH PRN (08:05)
[2018-02-23] MEDS ORDERED: HYDROmorphONE/DILAUDID 1 MG/ML INJ IVP PRN (08:05)
[2018-02-23] MEDS ORDERED: ACETAMINOPHEN 500 MG TAB PO PRN (08:05)
[2018-02-23] MEDS ORDERED: DEXAMETHASONE 4 MG/ML VIAL IVP PRN (08:05)
[2018-02-23] MEDS ORDERED: oxyCODONE IR 5 MG TAB PO PRN (08:05)
[2018-02-23] MEDS ORDERED: NALOXONE HCL 0.4 MG/ML INJ IVP PRN (08:05)
[2018-02-23] MEDS ORDERED: PROMETHAZINE HCL 25 MG/ML INJ IVP PRN (08:05)
[2018-02-23] MEDS ORDERED: HYDROCODONE/APAP 5/325 TAB PO PRN (08:05)
[2018-02-23] MEDS ORDERED: MEPERIDINE 25 MG/0.5 ML AMP IVP PRN (08:05)
[2018-02-23] MEDS ORDERED: LABETALOL HCL 5 MG/ML 20 ML MDV IVP PRN (08:05)
--- NOTE | 2018-02-23 08:12 | POSTANESTH ---
Post Anesthetic Evaluation Cardiovascular Status: Similar to Pre-Op Cond Respiratory Status: Similar to Pre-op Cond. Level of Consciousness/Mental Status: Can Participate in Eval, Mildly Sleepy, Arousable Pain Control: Adequate, Prn Tx Ordered Nausea/Vomiting Control: Adequate, Prn Tx Ordered Complications Possibly Related to Anesthesia: None Noted
[2018-02-23] MEDS ORDERED: SUGAMMADEX SODIUM 200 MG/2 ML VIAL IVP ONE (08:20)
--- NOTE | 2018-02-23 08:37 | POSTOPPROG ---
Post Op Note Date of Operation: 02/23/18 Surgeon: Max Martell Anesthesia: LMA Pre-op Diagnosis: ureterolithiasis Post-op Diagnosis: same Indication: same Procedure: ureteroscopy laser stent Inf/Abcess present in the surg proc area at time of surgery?: No EBL: Minimal Drains: Other (stent) Specimen(s): dictated
--- NOTE | 2018-02-23 08:53 | GOP ---
[f rep st] OPERATIVE REPORT DATE OF OPERATION: 02/23/2018 SURGEON: Max Martell MD PREOPERATIVE DIAGNOSIS: Left proximal ureteral stone with hydronephrosis. POSTOPERATIVE DIAGNOSIS: Left proximal ureteral stone with hydronephrosis. PROCEDURE PERFORMED: Cystoscopy, retrograde ureteral pyelogram with fluoroscopy, ureteral dilation, ureteroscopy with laser lithotripsy of the calculus, nephroscopy and stent placement. FINDINGS: DESCRIPTION OF PROCEDURE: This lady underwent general anesthesia, prepped and draped in normal steri le fashion in dorsal lithotomy position after appropriate timeout and being positioned on the table a ppropriately. The scope was passed into her bladder. She had no tumor, stones, foreign bodies or di verticula of the bladder. Left ureteral orifice was cannulated with a Pollack catheter and it reveal ed she had an impacted stone at the proximal ureter. I was able to pass the ureteral access sheath j ust below the stone, could manipulate the flexible scope in a fashion that I could gently fragment th e stone and dislodge it. Dislodged it up into the kidney and then fragmented to multiple fragments. At the end of the procedure, there was no significant fragments remaining endoscopically or radiogra phically. I visualized each calyx and then on removal of stone after placing a wire in the renal pel vis, extracted the scope and the sheath under direct vision, and there was no residual stone fragment s in the ureter and other than the impaction area of the ureter, there were no other abnormalities no forrest. At that point, a 7 multi-length English stent was passed in the kidney, it curled in the renal p thom, curled in the bladder radiographically. At the end of the procedure, she tolerated the proced ure well. She will be discharged home to see me in 1 week for stent removal. I will have her strain her urine upon discharge to see if we can get fragments. The stone appeared to be a combination of calcium oxalate with some uric acid parts to it. /[id number]/MODL
[2018-02-23] MEDS ORDERED: oxyCODONE IR 5 MG TAB ONE (09:08)
[2018-02-23] MEDS: fentaNYL 100 MCG/2 ML INJ IVP PRN ×2 (09:10→09:20)
[2018-02-23 09:51] VITALS: BP 120/93
== END 2018-02-23 09:50 | disposition home or self-care (01) ==
LOC: FSGY 05:54
PROVIDERS: ATTEND Specialist
PROC: 0T778DZ Dilation of Left Ureter with Intraluminal Device, Via Natural or Artificial Opening Endoscopic (ICD-10-PCS; principal; 2018-02-23 07:15)
PROC: BT17YZZ Fluoroscopy of Left Ureter using Other Contrast (ICD-10-PCS; principal; 2018-02-23 07:15)
PROC: 0TF78ZZ Fragmentation in Left Ureter, Via Natural or Artificial Opening Endoscopic (ICD-10-PCS; principal; 2018-02-23 07:15)
DX: N13.2 Hydronephrosis with renal and ureteral calculous obstruction (principal); J45.909 Unspecified asthma, uncomplicated; F32.9 Major depressive disorder, single episode, unspecified; E03.9 Hypothyroidism, unspecified; Z87.891 Personal history of nicotine dependence; Z87.442 Personal history of urinary calculi
CPT/HCPCS: 52356; 76001; C1758; C1769; C1894; C2625; J0690; J1100; J2001; J2250; J2405; J2704; J3010; Q9967

== ENCOUNTER 2018-07-17 14:13 | Emergency (ER) | payer OTHER, MEDICAID ==
[2018-07-17] MEDS ORDERED: ONDANSETRON 4 MG/2 ML VIAL ONE (14:20)
--- NOTE | 2018-07-17 14:25 | EDPHY ---
HPI/HX/ROS/PE/MDM - Data Points Imaging: Discussed imaging studies w/ yard caller Radiologist, I viewed and interpreted images myself Narrative: CLINICAL IMPRESSION: Acute closed right knee dislocation, seizures ASSESSMENT/PLAN: 38-year-old female with a known seizure disorder presents to the emergency department by ambulance after she reportedly had a seizure and injured her right knee. Patient is unable to recollect how she fell. She does not believe she hit her head. She did bite her tongue but was not incontinent. She is alert oriented and cooperative on arrival. Vital signs stable. She admits that she has been noncompliant with her Keppra recently. Patient has an obviously deformed knee with no open injury. Initial x-rays indicate an anterior dislocation. On initial evaluation, patient had intact pedal and posterior tibialis pulses, cap refill of 2 sec and intact sensation of the foot and toes. Patient underwent conscious sedation and reduction of anterior right knee dislocation and was placed in a posterior long-leg splint. CTA was performed and read by radiologist as no flow through patient's popliteal artery. Unable to to determine if the artery is transected or if the popliteal space is full of thrombus. She does have flow distally through the anterior and posterior tibial vessels. On repeat assessment, we are unable to palpate and auscultate pedal pulses with Doppler ultrasound. Patient continues to have good sensation to the foot and toes and is able to move all toes. Discussed with Dr. Pulliam, on-call for General surgery, who does not perform vascular surgery and has recommended the patient be transferred to [facility]. CT head normal with no acute intracranial abnormality or bleeding. Labs without significant abnormality. Heparin initiated. Dr. Hurtado discussed case with receiving trauma surgeon Dr. Chun who accepts transfer. Patient was sent with appropriate EMTALA forms. Pain is controlled at this time with IV analgesics. DIFFERENTIAL DX: Differential diagnosis includes but not limited to acute fracture, ligamentous injury, dislocation, vascular injury, specifically popliteal artery. Seizure including but not limited to electrolyte abnormality, alcohol withdrawal, medication noncompliance, head injury, and breakthrough seizure. ED PROCEDURES: See lab and x-ray results below Procedure: Dislocation reduction. The anterior dislocation of the right knee was reduced using traction, counter traction technique with the assistance of Dr. Mendez and Dr. Hurtado without complications. Post reduction the patient's neurovascular exam is normal. CTA pending. Post reduction x-ray demonstrates reduction of the joint to the anatomic position. The procedure was performed by Dr Mendez. ED COURSE: Conscious sedation performed by Dr. Hurtado. See her note for this procedure. 4:45 p.m.: Discussed with radiologist. Dr. Mckeon wanted does not see flow through patient's popliteal artery. Unable to determine if this is transected or full of thrombus. Discussed with Dr. Pulliam who does not feel comfortable performing vascular surgery and recommends transfer to [facility]. CT head clear. Patient was started on heparin. Dr. Hurtado spoke with [facility] center and trauma surgeon. Patient will plan to go to the operating room from the [facility]. Emergent transfer by helicopter initiated. Appropriate EMTALA forms completed. CHIEF COMPLAINT: Seizure and right knee injury HPI: This is a 38-year-old female with a known seizure disorder who presents to the emergency department by ambulance after she apparently had a seizure and fell onto the right leg injuring the right knee. Patient is reporting severe right knee and ankle pain. She has had a prior ORIF of the right ankle. No open wounds. She reports normal sensation to the foot and toes. She did bite her tongue. She was not incontinent of stool or urine. She takes Keppra for seizures but admits that she has been somewhat noncompliant recently. No drugs or alcohol. She has not been ill recently. She denies headache, dizziness, vertigo. She received 150 mcg of fentanyl and Zofran in route and is vomiting on my evaluation. PMH: Seizure disorder, hypothyroidism, morbid obesity Pertinent Past Surgical History: Cholecystectomy, lithotripsy, 2 prior C- sections Family History: Noncontributory Social History: Nonsmoker REVIEW OF SYSTEMS: All other systems negative Constitutional: No fever, no chills, appetite change. Eyes: No discharge, vision change ENT: No sore throat, congestion, ear pain. Cardiovascular: No chest pain, no palpitations. Respiratory: No cough, no shortness of breath. Gastrointestinal: No abdominal pain, no vomiting, diarrhea. Genitourinary: No hematuria, dysuria, flank pain, pelvic pain Musculoskeletal: No back pain, joint swelling, +joint pain, myalgias. Skin: No rashes, color change. Neurological: No headache, dizziness, weakness. PHYSICAL EXAM: General Appearance: Morbidly obese female, Alert, oriented, appropriate, cooperative, NAD, well hydrated, non-toxic appearing, VSS, no hypoxia. HEENT: TMs are clear bilaterally no perforation or FB, no injection, no evidence of serous or mucopurulent otitis. No hemotympanum or Travis sign Oropharynx clear is no erythema or exudates, no tonsillar hypertrophy or asymmetry. Superficial tongue lacerations noted Dentition without abnormality. No palpable scalp contusion or hematoma Eyes: PERRLA, no acute vision change, nystagmus, swelling, discharge, pain or photosensitivity. Conjunctiva pink, no pallor or injection Neck: Supple, nontender, no lymphadenopathy, no midline pain, FROM, no meningismus. Respiratory: There are no retractions, lungs are clear to auscultation. No reproducible chest wall pain Cardiac: Regular rate and rhythm, no murmurs or gallops. Gastrointestinal: Abdomen is soft, nontender, bowel sounds normal, no masses/ hernia, no rigidity, guarding or focal peritoneal findings. Neurological: Alert and oriented x 3, CN 2-12 grossly intact Skin: Warm, dry, contusion noted to posterior lateral right knee Musculoskeletal: Obvious deformity to right knee. No open wounds. Distal pedal and posterior tibialis pulses intact. Cap refill 2 sec bilaterally. Temperature symmetric bilateral lower extremities. No proximal joint pain. No reproducible pain to palpation of the femur or tib-fib. Patient does report ankle pain and has surgical scar to the right medial malleolus from prior ORIF MEDICAL DECISION MAKING: Patient was seen independently. Secondary supervising physician at time of evaluation was Dr. Hurtado . Diagnosis: Acute right knee dislocation, seizures. New, requires workup Summary: See Assessment and Plan for summary of ED visit Clinical lab tests: ordered / reviewed. Independent visualization of images, tracing, or specimens: Yes / No. Decision to obtain medical records or history from someone other than the patient: Patient's mother Review / Summarize previous medical records: Yes Discussed patient with another provider: Dr. Hurtado, Dr. Mendez, Dr. Jose M Pulliam, Dr. Chun Patient Progress: stable, critical . (Charlie Álvarez) ED Course: I evaluated and participated in the management of the patient. I also evaluated the patient independently. My co-signature indicates that I have reviewed this chart and I agree with the findings and plan of care as documented. My personal H&P findings include: 38-year-old female presents with a knee injury after seizure. Patient reports that she has not taken her Keppra for several days. She is unclear what happened on the seizure. She does have trauma to her mouth. Evaluation demonstrated a anterior knee dislocation. I perform conscious sedation with propofol in the patient's knee was reduced. Procedure: Conscious sedation. Indication: Right knee dislocation The patient is an appropriate candidate to tolerate procedural sedation. Patient's vital signs and mental status are appropriate. The risks, benefits, and alternatives of the sedation were discussed with the patient. The patient is an ASA classification of 1. The patient's Mallampati airway score was 2 and the patient did meet the 3-3-2 airway measurements. A time out was completed. The patient was sedated with propofol, total of 200 mg. The patient was monitored with continuous pulse oximetry, brewing director and end tidal CO2. There were no complications and no significant hypoxemia. I performed both the sedation and the procedure. The total time I spent at the bedside during the procedural sedation was 30 minutes. Procedure: Dislocation reduction. Indication: Dislocation of the right knee joint. Risks, benefits, alternatives discussed with the patient and consent obtained. The right knee was reduced in the usual fashion without complications by myself with assistance from Dr. Ramirez Mendez. Post reduction the patient's neurovascular exam is normal. Post reduction x-ray demonstrates reduction of the joint to the anatomic position. The procedure was performed by Dr. Mendez and myself. The patient was examined after the procedural sedation and has returned to their pre-sedation baseline with normal vital signs and a normal examination. Following reduction, patient went to CT angiogram to evaluate for vascular injury. The this demonstrates no flow in the popliteal artery. On return from CT, is noted that the patient has lost her dorsalis pedis pulse. Patient's course was then discussed with Dr. Andrae Chun, [facility]. Patient will be flown by helicopter to [facility] for emergent repair of her presumed arterial injury. Patient was started on heparin. I see no other significant signs of trauma on the patient. Head CT was negative. (BryantArlette Rebekah) - Data Points Imaging Results: Imaging Impressions Ankle X-Ray 07/17/18 14:22 Impression: Nothing acute identified. 2. Right Knee, 4 views, 14:33 History: Pain and deformity post fall. Findings: There is an acute anterior dislocation of the patella and lower leg from the distal femur. The distal femur is overlapping the posterior knee joint by approximately 5.6 cm. Small ossicles adjacent to the proximal anterior tibial plateau and tibial spine may be degenerative and/or indicate an avulsion injury of the anterior cruciate ligament. There is fluid filling the open knee joint. No obvious acute fracture is identified. Impression: Knee dislocation with overlap 3. Right Knee, 2 views, 15:18 History: Post reduction knee dislocation Findings: The knee is relocated. Small fracture fragments are seen within the central knee joint consistent with anterior cruciate avulsion. Impression: Successful reduction of the knee joint dislocation. Knee X-Ray 07/17/18 14:22 Impression: Nothing acute identified. 2. Right Knee, 4 views, 14:33 History: Pain and deformity post fall. Findings: There is an acute anterior dislocation of the patella and lower leg from the distal femur. The distal femur is overlapping the posterior knee joint by approximately 5.6 cm. Small ossicles adjacent to the proximal anterior tibial plateau and tibial spine may be degenerative and/or indicate an avulsion injury of the anterior cruciate ligament. There is fluid filling the open knee joint. No obvious acute fracture is identified. Impression: Knee dislocation with overlap 3. Right Knee, 2 views, 15:18 History: Post reduction knee dislocation Findings: The knee is relocated. Small fracture fragments are seen within the central knee joint consistent with anterior cruciate avulsion. Impression: Successful reduction of the knee joint dislocation. Lower Extremity CTA 07/17/18 15:19 Impression: 1. No flow in the right popliteal artery extending for 8 cm suggesting intraluminal thrombus or vascular avulsion. Recommend vascular surgery consult. 2. Right knee intraarticular bone fragment suggesting tibial spine or lateral tibial plateau fracture. 3. Distal arterial trifurcation flow noted in the right foot. Recommendation: Vascular surgery consult. Findings and recommendations discussed with Emergency Department physician, Charlie Álvarez PA-C, at 1630 hours, on July 17, 2018. Final report concurs with initial preliminary interpretation. Knee X-Ray 07/17/18 15:26 Impression: Nothing acute identified. 2. Right Knee, 4 views, 14:33 History: Pain and deformity post fall. Findings: There is an acute anterior dislocation of the patella and lower leg from the distal femur. The distal femur is overlapping the posterior knee joint by approximately 5.6 cm. Small ossicles adjacent to the proximal anterior tibial plateau and tibial spine may be degenerative and/or indicate an avulsion injury of the anterior cruciate ligament. There is fluid filling the open knee joint. No obvious acute fracture is identified. Impression: Knee dislocation with overlap 3. Right Knee, 2 views, 15:18 History: Post reduction knee dislocation Findings: The knee is relocated. Small fracture fragments are seen within the central knee joint consistent with anterior cruciate avulsion. Impression: Successful reduction of the knee joint dislocation. Head CT 07/17/18 15:39 Impression: 1. Normal CT brain without contrast. 2. Consider MRI of the brain, if there is continued clinical concern. Findings and recommendations discussed with Emergency Department physician, Arlette Hurtado MD at 16:35 hour, 07/17/2018. Final report concurs with initial preliminary interpretation. Laboratory Results: Laboratory Results 07/17/18 15:45 07/17/18 15:45 07/17/18 07/17/18 07/17/18 15:50 15:45 15:45 WBC RBC Hgb POC Hgb 13.6 gm/dL gm/dL (12.6-16.3) Hct POC Hct 40 % % (38-47) MCV MCH MCHC RDW Plt Count MPV Neut % (Auto) Lymph % (Auto) [place] % (Auto) Eos % (Auto) Baso % (Auto) Nucleat RBC Rel Count Absolute Neuts (auto) Absolute Lymphs (auto) Absolute Monos (auto) Absolute Eos (auto) Absolute Basos (auto) Absolute Nucleated RBC Immature Gran % Immature Gran # PT 13.8 SEC SEC (12.0-15.0) INR 1.04 (0.83-1.16) APTT 22.6 SEC L SEC (23.0-38.0) POC Sodium 142 mEq/L mEq/L (135-145) Sodium POC Potassium 3.4 mEq/L mEq/L (3.3-5.0) Potassium POC Chloride 103 mEq/L mEq/L (97-110) Chloride Carbon Dioxide Anion Gap POC BUN 10 mg/dL mg/dL (7-23) BUN Creatinine POC Creatinine 0.7 mg/dL mg/dL (0.6-1.0) Estimated GFR Glucose POC Glucose 142 mg/dL H mg/dL (70-100) Calcium Beta HCG, Qual NEGATIVE 07/17/18 07/17/18 15:45 15:45 WBC 22.68 10^3/uL H 10^3/uL (3.80-9.50) RBC 4.31 10^6/uL 10^6/uL (4.18-5.33) Hgb 14.5 g/dL g/dL (12.6-16.3) POC Hgb Hct 43.0 % % (38.0-47.0) POC Hct MCV 99.8 fL fL (81.5-99.8) MCH 33.6 pg pg (27.9-34.1) MCHC 33.7 g/dL g/dL (32.4-36.7) RDW 12.2 % % (11.5-15.2) Plt Count 265 10^3/uL 10^3/uL (150-400) MPV 10.5 fL fL (8.7-11.7) Neut % (Auto) 85.9 % H % (39.3-74.2) Lymph % (Auto) 6.7 % L % (15.0-45.0) [place] % (Auto) 6.0 % % (4.5-13.0) Eos % (Auto) 0.4 % L % (0.6-7.6) Baso % (Auto) 0.3 % % (0.3-1.7) Nucleat RBC Rel Count 0.0 % % (0.0-0.2) Absolute Neuts (auto) 19.49 10^3/uL H 10^3/uL (1.70-6.50) Absolute Lymphs (auto) 1.52 10^3/uL 10^3/uL (1.00-3.00) Absolute Monos (auto) 1.36 10^3/uL H 10^3/uL (0.30-0.80) Absolute Eos (auto) 0.08 10^3/uL 10^3/uL (0.03-0.40) Absolute Basos (auto) 0.07 10^3/uL 10^3/uL (0.02-0.10) Absolute Nucleated RBC 0.00 10^3/uL 10^3/uL (0-0.01) Immature Gran % 0.7 % % (0.0-1.1) Immature Gran # 0.16 10^3/uL H 10^3/uL (0.00-0.10) PT INR APTT POC Sodium Sodium 139 mEq/L mEq/L (135-145) POC Potassium Potassium 3.7 mEq/L mEq/L (3.5-5.2) POC Chloride Chloride 106 mEq/L mEq/L (97-110) Carbon Dioxide 24 mEq/l mEq/l (22-31) Anion Gap 9 mEq/L mEq/L (6-14) POC BUN BUN 13 mg/dL mg/dL (7-23) Creatinine 0.8 mg/dL mg/dL (0.6-1.0) POC Creatinine Estimated GFR > 60 Glucose 151 mg/dL H mg/dL (70-100) POC Glucose Calcium 8.5 mg/dL mg/dL (8.5-10.4) Beta HCG, Qual Medications Given: Discontinued Medications Heparin Sodium (Porcine) (Heparin Injection) 0 unit IVP EDNOW ONE Stop: 07/17/18 16:45 Last Admin: 07/17/18 17:06 Dose: 10,000 units Hydromorphone HCl (Dilaudid) 1 mg IVP EDNOW ONE Stop: 07/17/18 15:31 Last Admin: 07/17/18 15:32 Dose: 1 mg Hydromorphone HCl (Dilaudid) 1 mg IVP EDNOW ONE Stop: 07/17/18 16:22 Last Admin: 07/17/18 16:24 Dose: 1 mg Heparin Sodium (Porcine) (Heparin 50 Units/Ml (Premix)) 500 mls @ 0 mls/hr IV EDNOW ONE; Per Protocol PRN Reason: Protocol Stop: 07/17/18 16:45 Last Admin: 07/17/18 16:58 Dose: 500 mls Ondansetron HCl (Zofran) 4 mg IVP EDNOW ONE Stop: 07/17/18 14:52 Last Admin: 07/17/18 14:52 Dose: 4 mg Propofol (Diprivan) 200 mg IVP EDNOW ONE Stop: 07/17/18 15:11 Last Admin: 07/17/18 15:10 Dose: 200 mg Point of Care Test Results: Chemistry 07/17/18 15:45 POC Sodium 142 mEq/L mEq/L (135-145) POC Potassium 3.4 mEq/L mEq/L (3.3-5.0) POC Chloride 103 mEq/L mEq/L (97-110) POC BUN 10 mg/dL mg/dL (7-23) POC Creatinine 0.7 mg/dL mg/dL (0.6-1.0) POC Glucose 142 mg/dL H mg/dL (70-100) ISTAT H&H 07/17/18 15:45 POC Hgb 13.6 gm/dL gm/dL (12.6-16.3) POC Hct 40 % % (38-47) General Time Seen by Provider: 07/17/18 14:13 Initial Vital Signs: Initial Vital Signs Temperature (C) 36.5 C 07/17/18 14:24 Heart Rate 70 07/17/18 14:24 Respiratory Rate 16 07/17/18 14:24 Blood Pressure 134/84 H 07/17/18 14:24 O2 Sat (%) 90 L 07/17/18 14:24 O2 Delivery Mode [Post Non-Rebreather Mask Procedure 2nd] O2 Delivery Mode [Post Non-Rebreather Mask Procedure 1st] O2 Delivery Mode [Procedural Non-Rebreather Mask 2nd] O2 Delivery Mode [Procedural Non-Rebreather Mask 1st] O2 Delivery Mode [.Immediate Non-Rebreather Mask Pre-Procedure] O2 Delivery Mode Nasal Cannula O2 (L/minute) [Post Procedure 15 2nd] O2 (L/minute) [Post Procedure 15 1st] O2 (L/minute) [Procedural 2nd] 15 O2 (L/minute) [Procedural 1st] 15 O2 (L/minute) [.Immediate Pre- 15 Procedure] O2 (L/minute) 2 Allergies/Adverse Reactions: No Known Allergies Allergy (Verified 07/23/18 20:02) Home Medications: Medication Instructions Recorded Keppra 02/21/18 Levothyroxine 02/23/18 Acetazolamide 03/05/18 oxyCODONE/APAP 325 [Percocet 1 - 2 tab PO Q4H PRN #10 tab 03/05/18 [id number] (RX)] Departure - Departure Disposition: [facility] Clinical Impression: Dislocation, knee closed Qualifiers: Encounter type: initial encounter Laterality: right Qualified Code(s): S83.104A - Unspecified dislocation of right knee, initial encounter Injury of popliteal artery Qualifiers: Encounter type: initial encounter Laterality: right Qualified Code(s): S85.001A - Unspecified injury of popliteal artery, right leg, initial encounter Condition: Serious Referrals: Patient,NotPresent [Unknown] - As per Instructions
[2018-07-17] MEDS ORDERED: ONDANSETRON 4 MG/2 ML VIAL IVP ONE (14:51)
[2018-07-17] MEDS ORDERED: PROPOFOL/EMULSION 1,000 MG/100 ML BOTTLE IV ONE (15:01)
[2018-07-17] MEDS ORDERED: PROPOFOL 200 MG/20 ML VIAL IVP ONE (15:10)
[2018-07-17] MEDS ORDERED: HYDROmorphONE/DILAUDID 1 MG/ML INJ ONE ×2 (15:26→16:22)
[2018-07-17] MEDS ORDERED: HYDROmorphONE/DILAUDID 2 MG/ML INJ IVP ONE ×2 (15:30→16:21)
[2018-07-17] MEDS ORDERED: IOPAMIDOL (ISOVUE 370) 100 ML BTL IV ONE (15:47)
[2018-07-17 15:57] LABS: PLATELET COUNT 265 10^3/uL (150-400)
[2018-07-17] MEDS ORDERED: HEPARIN/DEXTROSE 500 ML IV ONE (16:44)
[2018-07-17] MEDS ORDERED: HEPARIN 10,000 UNIT/10 ML MDV (1,000 UNIT/ML) IVP ONE (16:44)
[2018-07-17 16:48] VITALS: BP 131/88
[2018-07-17 17:46] LABS: INR 1.04 (0.83-1.16); PROTIME(PATIENT) 13.8 SEC (12.0-15.0)
== END 2018-07-17 17:34 | disposition short-term general hospital (02) ==
LOC: EDUNIT#
PROC: 0SSCXZZ Reposition Right Knee Joint, External Approach (ICD-10-PCS; principal; 2018-07-17)
DX: S83.104A Unspecified dislocation of right knee, initial encounter (principal); S85.001A Unspecified injury of popliteal artery, right leg, initial encounter; G40.909 Epilepsy, unspecified, not intractable, without status epilepticus; W19.XXXA Unspecified fall, initial encounter; Y92.9 Unspecified place or not applicable; Y93.9 Activity, unspecified; Y99.9 Unspecified external cause status
CPT/HCPCS: 82435-PO; 82565-PO; 82947-PO; 84132-PO; 84295-PO; 84520-PO; 85014-PO; 96365; J1170; J1644; J2405; J2704; Q9967

== ENCOUNTER 2019-01-25 17:48 | Emergency (ER) | payer OTHER | END 2019-01-25 19:03 | disposition home or self-care (01) ==